=== PATIENT | female | born 1970 | race Caucasian/White ===

== ENCOUNTER 2020-12-17 06:27 | Emergency (ER) | payer OTHER, SELFPAY ==
[~2020-12-17] VITALS: Ht 147.3 cm; Wt 54.4 kg
[~2020-12-17 06:27] MED LIST: GLYB5TAB7 PO; LON10 PO; LOSA100T3 PO; METO100T PO
[2020-12-17 06:35] VITALS: BP_SYST 107
--- NOTE | 2020-12-17 06:42 | NUR ---
Patient to ER bed 4 to gown for evaluation. Side rails up.
--- NOTE | 2020-12-17 06:48 | NUR ---
Dr. Capone bedside for pt eval
[2020-12-17] MEDS ORDERED: ONDANSETRON 4 MG ODT TAB PO ONE (07:00)
[2020-12-17 07:16] LABS: BASOPHILS # (AUTO) 0.1 K/uL (0.0-0.2); BASOPHILS % (AUTO) 0.7 % (0.0-2.0); EOSINOPHILS # (AUTO) 0.1 K/uL (0.0-0.4); EOSINOPHILS % (AUTO) 0.6 % (0.0-4.0); HEMATOCRIT 44.1 % (36-48); HEMOGLOBIN 14.6 g/dL (12.0-16.0); LYMPHOCYTES # (AUTO) 1.1 K/uL (1.0-5.5); LYMPHOCYTES % (AUTO) 12.9 % (20.5-51.5); MEAN CORPUSCULAR HEMOGLOBIN 31 pg (27-31); MEAN CORPUSCULAR HGB CONC 33 % (32-36); MEAN CORPUSCULAR VOLUME 95 fL (79.0-98.0); MONOCYTES # (AUTO) 0.3 K/uL (0.0-1.0); MONOCYTES % (AUTO) 3.8 % (1.7-9.3); NEUTROPHILS # (AUTO) 6.7 K/uL (1.8-7.7); PLATELET COUNT (AUTO) 157 K/uL (130-430); RED BLOOD CELL COUNT(AUTO) 4.66 MIL/uL (4.2-6.2); RED CELL DISTRIBUTION WIDTH 14.7 % (9.0-15.0); WHITE BLOOD COUNT (AUTO) 8.2 K/uL (4.8-10.8)
--- NOTE | 2020-12-17 07:21 | NUR ---
RECEIVED PT SITTING UPRIGHT ON GURNEY, IN NAD. PT HERE FOR VOMITTING SINCE LAST NIGHT. REPORTS X6 TIMES. SKIN W/D/I, DENIES ANY ABD PAIN, FEVERS/CHILLS. NO DIARRHEA. STATES HER PMD CHNAGED HER DOASGE ON HER DIABETIC MEDICATION AND THAT USUALLY CAUSES VOMITING.
[2020-12-17 07:31] LABS: CREATININE 1.81 mg/dL (0.55-1.30); POTASSIUM 4.9 mmol/L (3.5-5.1)
[2020-12-17 07:37] LABS: ALBUMIN 3.9 g/dL (3.4-4.8); TOTAL BILIRUBIN 2.1 mg/dL (0.0-1.0)
[2020-12-17] MEDS ORDERED: ONDA-8 TL (08:13)
[2020-12-17 08:24] VITALS: BP_SYST 117
--- NOTE | 2020-12-17 08:24 | NUR ---
Patient given written and verbal discharge instructions and verbalizes understanding. ER MD discussed with patient the results and treatment provided. Patient in stable condition. ID arm band removed. Patient educated on pain management and to follow up with PMD. Pain Scale . Opportunity for questions provided and answered. Medication side effect fact sheet provided.
== END 2020-12-17 08:24 | disposition home or self-care (01) ==
LOC: SED 06:27
DX: K31.84 Gastroparesis (principal); I10 Essential (primary) hypertension; E11.9 Type 2 diabetes mellitus without complications; Z88.8 Allergy status to other drugs, medicaments and biological substances; Z79.899 Other long term (current) drug therapy
CPT/HCPCS: 36415; 71045; 80053; 83690; 84484; 85025; 93005; 99285

== ENCOUNTER 2021-12-12 21:48 | Inpatient (IN) | payer OTHER ==
[~2021-12-12] VITALS: Ht 147.3 cm; Wt 60.3 kg
[~2021-12-12 21:48] MED LIST changes: +ONDA-8 TL
[2021-12-12 22:05] VITALS: BP_SYST 153
[2021-12-12 23:16] LABS: BASOPHILS # (AUTO) 0.1 K/uL (0.0-0.2); BASOPHILS % (AUTO) 1.6 % (0.0-2.0); EOSINOPHILS % (AUTO) 0.6 % (0.0-4.0); HEMATOCRIT 38.1 % (36-48); LYMPHOCYTES # (AUTO) 0.5 K/uL (1.0-5.5); LYMPHOCYTES % (AUTO) 9.1 % (20.5-51.5); MEAN CORPUSCULAR VOLUME 93 fL (79.0-98.0); MONOCYTES # (AUTO) 0.4 K/uL (0.0-1.0); MONOCYTES % (AUTO) 7.4 % (1.7-9.3); NEUTROPHILS # (AUTO) 4.6 K/uL (1.8-7.7); NEUTROPHILS % (AUTO) 81.3 % (40.0-70.0); PLATELET COUNT (AUTO) 185 K/uL (130-430); RED BLOOD CELL COUNT(AUTO) 4.11 MIL/uL (4.2-6.2); RED CELL DISTRIBUTION WIDTH 14.8 % (9.0-15.0); WHITE BLOOD COUNT (AUTO) 5.7 K/uL (4.8-10.8)
[2021-12-12 23:19] LABS: CALCIUM 8.8 mg/dL (8.4-11.0); CREATININE 1.54 mg/dL (0.55-1.30); POTASSIUM 3.5 mmol/L (3.5-5.1)
[2021-12-12 23:24] LABS: ALBUMIN 3.4 g/dL (3.4-4.8); TOTAL BILIRUBIN 1.9 mg/dL (0.0-1.0)
[2021-12-13 01:51] LABS: BILIRUBIN,URINE NEGATIVE (NEGATIVE); BLOOD, URINE 1+ (NEGATIVE); CLARITY/URINE CLEAR (CLEAR); COLOR,URINE YELLOW (YELLOW); GLUCOSE,URINE NEGATIVE (NEGATIVE); KETONES,URINE NEGATIVE (NEGATIVE); LEUKOCYTE ESTERASE ,URINE NEGATIVE (NEGATIVE); NITRITE, URINE NEGATIVE (NEGATIVE); PROTEIN URINE 2+ (NEGATIVE); UROBILINOGEN,URINE 0.2 (0.2-1.0)
[2021-12-13] MEDS ORDERED: FUROSEMIDE 100 MG/10 ML VIAL IVP ONE (02:45)
[2021-12-13] MEDS ORDERED: POTASSIUM CHLORIDE 20 MEQ/PKT PACKET PO ONE (02:45)
[2021-12-13] MEDS ORDERED: METO2.5T2 PO (03:08)
[2021-12-13] MEDS ORDERED: INSU100V38 SQ ×2 (03:08→13:42)
[2021-12-13] MEDS ORDERED: FURO-150 PO (03:08)
[2021-12-13 03:33] LABS: WBC,URINE 0-3 /HPF (0-3)
[2021-12-13 03:34] LABS: BACTERIA,URINE None Seen /HPF (None Seen)
[2021-12-13 03:35] LABS: MUCUS,URINE None Seen /LPF (None Seen)
[2021-12-13 09:13] VITALS: BP_SYST 122
[2021-12-13] MEDS: FUROSEMIDE 40 MG/4 ML VIAL IVP SCH ×2 (09:33→20:38)
[2021-12-13 12:09] VITALS: BP_SYST 11
[2021-12-13] MEDS ORDERED: GLIM1TAB18 PO (13:41)
[2021-12-13] MEDS ORDERED: METO10TA16 PO (13:41)
[2021-12-13] MEDS ORDERED: FURO40TA5 PO (13:41)
[2021-12-13] MEDS ORDERED: LOSA50TA3 PO (13:41)
[2021-12-13] MEDS ORDERED: METO50TA7 PO (13:41)
[2021-12-13] MEDS ORDERED: SODI650T PO (13:42)
[2021-12-13 16:00] VITALS: BP_SYST 117
[2021-12-13 20:00] VITALS: BP_SYST 110
[2021-12-14 00:49] VITALS: BP_SYST 121
[2021-12-14 08:13] VITALS: BP_SYST 129
[2021-12-14] MEDS: FUROSEMIDE 40 MG/4 ML VIAL IVP SCH ×2 (08:40→22:08)
[2021-12-14 12:00] VITALS: BP_SYST 106
[2021-12-14 16:00] VITALS: BP_SYST 132
[2021-12-14 20:00] VITALS: BP_SYST 133
[2021-12-15] VITALS: BP_SYST 134
[2021-12-15 08:20] VITALS: BP_SYST 133
[2021-12-15 08:22] VITALS: BP_SYST 133
[2021-12-15] MEDS: FUROSEMIDE 40 MG/4 ML VIAL IVP SCH ×2 (08:24→21:21)
[2021-12-15 16:00] VITALS: BP_SYST 138
[2021-12-15] MEDS ORDERED: INSULIN REGULAR, HUMAN 10 UNITS/0.1 ML, 3 ML VIAL SUBCUT ONE ×2 (18:00→18:30)
[2021-12-15] MEDS ORDERED: INSULIN REGULAR, HUMAN 100 UNITS/ML, 3 ML VIAL (humuLIN R) SUBCUT PRN (19:30)
[2021-12-15 20:00] VITALS: BP_SYST 136
[2021-12-15] MEDS ORDERED: D5W 1,000 ML IV PRN (20:00)
[2021-12-15] MEDS ORDERED: DEXTROSE 50%-WATER 50 ML DISP.SYRIN IVP PRN (20:00)
[2021-12-15] MEDS ORDERED: GLUCOSE (DEXTROSE) ORAL GEL -Adults PO PRN (20:00)
[2021-12-16] VITALS: BP_SYST 125
[2021-12-16 08:04] VITALS: BP_SYST 132
[2021-12-16] MEDS: FUROSEMIDE 40 MG/4 ML VIAL IVP SCH (08:21)
[2021-12-16 11:41] VITALS: BP_SYST 132
== END 2021-12-16 13:22 | disposition home or self-care (01) | DRG 292 ==
LOC: SED 21:48 → STU 12-13 05:08 → OBSVTOIN 12-15 12:24
PROVIDERS: ADMIT Specialist; ATTEND Specialist
DX: I13.0 Hypertensive heart and chronic kidney disease with heart failure and stage 1 through stage 4 chronic kidney disease, or unspecified chronic kidney disease (principal); N17.9 Acute kidney failure, unspecified; R18.8 Other ascites; N18.32 Chronic kidney disease, stage 3b; I27.20 Pulmonary hypertension, unspecified; F41.1 Generalized anxiety disorder; Z20.822 Contact with and (suspected) exposure to COVID-19; I50.9 Heart failure, unspecified; E11.22 Type 2 diabetes mellitus with diabetic chronic kidney disease; Z88.8 Allergy status to other drugs, medicaments and biological substances; Z79.899 Other long term (current) drug therapy
CPT/HCPCS: 36415; 71045; 74018; 76700-TC; 76770; 80053; 81000; 82962; 83690; 83880; 84484; 85025; 93005; G0378; J1815; J1940